=== PATIENT | male | born 1960 | race Caucasian/White ===

== ENCOUNTER 2024-05-28 04:03 | Emergency (ER) | payer MEDICAID, SELFPAY ==
[2024-05-28] VITALS (7 sets, daily range): BP systolic 93–121; BP diastolic 61–72; PULSE 81–145; RESP 16–20; TEMP 36.6–37.3; O2SAT 92–97; BMI 36.9
--- NOTE | 2024-05-28 04:14 | EKG_ITS ---
[facility] Test Date: 2024-05-28 Pat Name: KELTON FLORES Department: Room: - Gender: Male [employer] In [employer] Operator: : 1960 Requested By: Liz Major Order Number: [id number] Reading MD: Liz Major Measurements Intervals Reader Rate: 144 P: MO: QRS: 22 QRSD: 88 T: 28 QT: 288 QTc: 447 Interpretive Statements SUPRAVENTRICULAR TACHYCARDIA NONSPECIFIC ST & T-WAVE ABNORMALITY ABNORMAL RHYTHM ECG No previous ECG available for comparison /[id number]/[email or web address]/[id number].pdf
[2024-05-28] MEDS: SODIUM CHLORIDE 0.9% 1000 ML 1,000 ML 999 ML IV ×2 (04:28→05:28)
--- NOTE | 2024-05-28 04:32 | XR_ITS ---
Examination: AP chest single view Technique one AP portable upright chest single view Exam date and time: May 28, 2024 0502 hrs. Indications: Onset chest pain today. Findings: No significant cardiac enlargement Prominent vascular congestion Bibasilar opacity most consistent with pneumonia Prominent osteopenia Impression: Bibasilar opacity most consistent with pneumonia
--- NOTE | 2024-05-28 05:29 | EDNOTE_ITS ---
ED General RME/HPI General Chief complaint: General Adult/Misc Complain Stated complaint: FAST HEART RATE Time Seen by Provider: 05/28/24 04:08 Source: patient and EMS Arrival date/time: 05/28/24 04:03 Mode of arrival: EMS Limitations: no limitations RME / HPI RME / HPI narrative: DR GARDUNO MAIN ED EVALUATION: 64yom brought in by ambulance from [facility] who presents to ED for stated c/o rapid heart rate in the 146s and possible sepsis. Per EMS, pt's heart rate was 140 on scene. Patient c/o right foot pain, aching in nature, 8/10 in severity. Denies any other medical complaints or associated symptoms. Related Data Allergies Allergy/AdvReac Type Severity Reaction Status Date / Time No Known Allergies Allergy Verified 05/28/24 06:28 Review of Systems Review of Systems Systems Reviewed: All systems reviewed, normal except as documented Past Medical History Social History SMOKING STATUS: Never smoker ED Exam Narrative Physical exam: GENERAL APPEARANCE: alert and oriented x 4, well-developed, well-nourished, no acute distress VITALS: All vitals were reviewed and the pulse ox is % on room air, which is normal according to my interpretation. HEENT: Normocephalic, atraumatic; pupils equal, round, reactive to light; EOMI; mucous membranes pink, moist; oropharynx clear NECK: Supple LUNGS: CTABL; no wheezes, no rales, no rhonchi HEART: Tachycardic; normal S1, S2; no murmurs ABDOMEN: non distended; normal BS; soft, no tenderness, no guarding, no rebound; no masses, no organomegaly, no hernia BACK: no CVA tenderness EXTREMITIES: atraumatic; no edema NEUROLOGIC: awake; alert and oriented x4; cranial nerves II-XII grossly intact; no focal sensory or motor deficits PSYCHIATRIC: appropriate mood and affect SKIN: warm, dry, normal color; no rashes General Limitations: Present no limitations Course Course Course Narrative: CXR is ordered for determining etiology of chest pain. Quality Measures none Orders Category Date Time Status Chili Maker NOW Care 05/28/24 04:32 Completed EKG (ED ONLY) *Do not use* NOW Care 05/28/24 04:14 Completed EKG (ED ONLY) *Do not use* NOW Care 05/28/24 06:23 Completed EKG (ED Only) Stat Exams 05/28/24 04:14 Draft EKG (ED Only) Stat Exams 05/28/24 06:23 Ordered XR chest 1V portable Stat Exams 05/28/24 04:32 Completed B-Type Natriuretic Peptide Stat Lab 05/28/24 04:50 Completed Blood Culture (Lab) Stat Lab 05/28/24 04:50 Completed CBC Stat Lab 05/28/24 04:50 Completed Comprehensive Metabolic Panel Stat Lab 05/28/24 04:50 Completed Lactate (Lactic Acid) Stat Lab 05/28/24 04:50 Completed Lactic Acid, 3 HR Stat Lab 05/28/24 09:38 Completed Lipase Stat Lab 05/28/24 04:50 Completed Magnesium Stat Lab 05/28/24 04:50 Completed Procalcitonin Stat Lab 05/28/24 04:50 Completed Troponin I Stat Lab 05/28/24 04:50 Completed Urinalysis Stat Lab 05/28/24 05:52 Completed Urine Culture Stat Lab 05/28/24 05:52 Completed Sodium Chloride 0.9% 1000 ml [Ns] 1,000 ml Med 05/28/24 04:23 Discontinued IV 999 mls/hr Sodium Chloride 0.9% 1000 ml [Ns] 1,000 ml Med 05/28/24 05:25 Discontinued IV 999 mls/hr Vital Signs Vital signs: Vital Signs Temperature 98.4 F 05/28/24 04:07 Pulse Rate 127 H 05/28/24 04:07 Respiratory Rate 16 05/28/24 04:07 Blood Pressure 98/61 05/28/24 04:07 Pulse Oximetry (%) 96 05/28/24 04:07 Oxygen Delivery Method Room Air 05/28/24 04:07 [facility] Patient data External records reviewed:: EMS form, Jail records and None Clinical information provided by:: patient, EMS and none (SNF staff) Social determinants that could affect healthcare access:: housing (SNF) Patient has the following chronic illnesses:: per longterm How is presenting disease/condition affected by chronic disease/condition?: no chronic disease Evaluation data The following diagnostics were reviewed and interpreted by me:: lab results, radiology exam(s) and EKG tracing(s) Lab and/or radiology exams considered but not ordered:: n/a Interpretation Summary: The cardiac catheterization technician revealed sinus tachycardia as interpreted by me. The cardiac catheterization technician was ordered to monitor for dysrhythmia. Pulse rate is 145 at 0526. I personally reviewed the CXR on this patient which shows Medications Medications considered but not ordered:: n/a Medication administrations:: Medication Administration History Discontinued Medications Sodium Chloride (Ns) 1,000 mls @ 999 mls/hr IV .Q1H1M ONE Stop: 05/28/24 05:23 Last Infusion: 05/28/24 05:29 Dose: Infused Documented By: Admin: 05/28/24 04:28 Dose: 999 mls/hr Documented By: CB Sodium Chloride (Ns) 1,000 mls @ 999 mls/hr IV .Q1H1M ONE Stop: 05/28/24 06:25 Last Infusion: 05/28/24 06:32 Dose: Infused Documented By: Admin: 05/28/24 05:28 Dose: 999 mls/hr Documented By: CB as above Consultations Consultation(s) initiated? (list below): No Diagnosis Differential Diagnosis ED Complaint MDM: sepsis, UTI, arrhythmia Most likely diagnosis given after review of the tests above:: See below Admission Indicated Admission indicated?: not indicated Explain why admission is indicated or not indicated:: Pending workup, results and final dispo Admission Request Was there a request for admission?: No Disposition Plan Disposition Plan: other (specify) (Signed out to Dr. Cho) Medical Decision Making MDM Narrative MDM Narrative: Scribe Attestation: I, Russ Draper, am scribing for and in the presence of Dr. Garduno. Provider Notation: Although this document has been carefully reviewed, there may still be some phonetic and other typographical errors. These errors are purely grammatical due to imperfections in the software program and should not be construed in any way to compromise the substance of the patient's medical care during this visit. Differential Diagnosis Differential Diagnosis: sepsis, UTI, arrhythmia Lab Data Lab results reviewed: Yes I reviewed the patient's lab results. 05/28/24 04:50 05/28/24 04:50 Labs: Lab Results 05/28/24 05/28/24 05/28/24 Range/Units 04:50 05:52 09:38 WBC 14.9 H (3.8-10.6) Thou/mm3 RBC 4.34 L (4.50-5.90) Miln/mm3 Hgb 11.4 L (13.5-16.0) g/dL Hct 38.4 L (41.0-53.0) % MCV 89 (80-100) fL MCH 26.3 (25.0-35.0) pg MCHC 29.7 L (31.0-37.0) g/dl RDW Std Deviation 49.0 H (35.1-43.9) fL Plt Count 306 (140-440) Thou/mm3 Neut % (Auto) 68 (37-80) % Lymph % (Auto) 17 (10-50) % [place] % (Auto) 7 (0-12) % Eos % (Auto) 7 (0-10) % Baso % (Auto) 1 (0-2.5) % Neut # (Auto) 10.2 H (1.8-7.7) Thou/mm3 Lymph # (Auto) 2.5 (1.0-4.8) Thou/mm3 [place] # (Auto) 1.0 H (0.0-0.8) Thou/mm3 Eos # (Auto) 1.1 H (0.0-0.5) Thou/mm3 Baso # (Auto) 0.1 (0.0-0.2) Thou/mm3 Immature Gran # (Auto) 0.07 H (0.00-0.00) Thou/mm3 Absolute Nucleated RBC 0.00 (0.00-0.00) Thou/mm3 Immature Gran % 1 H (0-0) % Nucleated RBC % 0 (0) /100 WBC Sodium 136 (136-145) mMol/L Potassium 4.6 (3.4-5.1) mMol/L Chloride 98 (98-107) mMol/L Carbon Dioxide 28.9 (20.0-31.0) mMol/L Anion Gap 9 (7-16) BUN 19 (9-23) mg/dL Creatinine 1.2 (0.6-1.3) mg/dL Estim Creat Clear Calc 77.2 (>60) mL/min eGFR > 60 (60 - ) See Note BUN/Creatinine Ratio 16 (12-20) Ratio Glucose 206 H (74-106) mg/dL Calculated Osmolality 280 (275-295) Lactic Acid 1.5 0.9 (0.4-2.0) mMol/L Calcium 9.6 (8.3-10.6) mg/dL Corrected Calcium 9.6 (8.5-10.1) mg/dL Magnesium 2.0 (1.6-2.6) mg/dL Total Bilirubin 0.3 (0.3-1.2) mg/dL AST 20 (0-34) U/L ALT 19 (10-49) U/L Alkaline Phosphatase 107 (46-116) U/L Troponin I < 0.020 (0.0-0.045) ng/mL B-Natriuretic Peptide 369 H (0-100) pg/mL Total Protein 7.3 (5.7-8.2) gm/dL Albumin 4.1 (3.4-4.8) gm/dL Globulin 3.2 (2.3-3.5) gm/dL Albumin/Globulin Ratio 1.3 (1.2-2.2) Lipase 29 (12-53) U/L Procalcitonin 0.25 (0.0-0.49) ng/ml Ur Collection Type Clean Catch Urine Color [place] A (Lt Yel-Yel) Urine Clarity Turbid A (Clear/Hazy) Urine pH 6.5 (5.0-7.0) Ur Specific [place] 1.025 (1.001-1.035) Urine Protein 3+ A (Neg - Trace) Urine Glucose (UA) Negative (Negative) Urine Ketones Negative (Negative) Urine Blood 1+ A (Negative) Urine Nitrite Negative (Negative) Urine Bilirubin Negative (Negative) Urine Urobilinogen (Auto) Negative (0.0-1.0) mg/dL Ur Leukocyte Esterase Positive (Negative) Urine RBC 20 H (0-3) /hpf Urine WBC 1161 H (0-5) /hpf Ur Squamous Epith Cells 12 H (0-5) /hpf Urine Bacteria None (None) Urine Yeast (Budding) Present A (None) Discharge Plan Prescriptions/Referrals Referrals: Juventino Gomes MD [Primary Care Provider] - In 1 week Problem List Clinical Impression: SVT (supraventricular tachycardia), Acute UTI Patient/Caregiver Discharge Instructions Print Language: Venezuelan
[2024-05-28 05:39] LABS: Basophils # (Auto) 0.1 Thou/mm3 (0.0-0.2); Basophils % (Auto) 1 % (0-2.5); Eosinophils # (Auto) 1.1 Thou/mm3 (0.0-0.5); Eosinophils % (Auto) 7 % (0-10); Hematocrit 38.4 % (41.0-53.0); Hemoglobin 11.4 g/dL (13.5-16.0); Immature Granulocytes % (Auto) 1 % (0-0); Immature Granulocytes Auto 0.07 Thou/mm3 (0.00-0.00); Lymphocytes # (Auto) 2.5 Thou/mm3 (1.0-4.8); Lymphocytes % (Auto) 17 % (10-50); Mean Corpuscular HGB Conc 29.7 g/dl (31.0-37.0); Mean Corpuscular Hemoglobin 26.3 pg (25.0-35.0); Mean Corpuscular Volume 89 fL (80-100); Monocytes % (Auto) 7 % (0-12); Neutrophils # (Auto) 10.2 Thou/mm3 (1.8-7.7); Neutrophils % (Auto) 68 % (37-80); Nucleated Red Blood Cell % 0 /100 WBC (0); Platelet Count 306 Thou/mm3 (140-440); Red Blood Count 4.34 Miln/mm3 (4.50-5.90); White Blood Count 14.9 Thou/mm3 (3.8-10.6)
[2024-05-28 05:58] LABS: Collection Type, Urine Clean Catch
[2024-05-28 06:09] LABS: B-Type Natriuretic Peptide 369 pg/mL (0-100)
[2024-05-28 06:15] LABS: Bilirubin,Urine Negative (Negative); Blood,Urine 1+ (Negative); Budding Yeast,Urine Present; Clarity,Urine Turbid (Clear/Hazy); Color,Urine Orange (Lt Yel-Yel); Glucose, Urine Negative (Negative); Ketones,Urine Negative (Negative); Leukocyte Esterase,Urine Positive (Negative); Nitrite,Urine Negative (Negative); PH,Urine 6.5 (5.0-7.0); Protein,Urine 3+ (Neg - Trace); RBC,Urine 20 /hpf (0-3); Specific Gravity,Urine 1.025 (1.001-1.035); Squamous Epithelial Cell,Urine 12 /hpf (0-5); Urobilinogen,Urine Negative mg/dL (0.0-1.0); WBC,Urine 1161 /hpf (0-5)
[2024-05-28 06:19] LABS: Alanine Aminotransferase 19 U/L (10-49); Albumin, Serum 4.1 gm/dL (3.4-4.8); Albumin/Globulin Ratio 1.3 (1.2-2.2); Alkaline Phosphatase 107 U/L (46-116); Anion Gap 9 (7-16); Aspartate Amino Transferase 20 U/L (0-34); BUN/Creatinine Ratio 16 Ratio (12-20); Bilirubin,Total 0.3 mg/dL (0.3-1.2); Blood Urea Nitrogen 19 mg/dL (9-23); Calcium 9.6 mg/dL (8.3-10.6); Calcium (Corrected) 9.6 mg/dL (8.5-10.1); Carbon Dioxide 28.9 mMol/L (20.0-31.0); Chloride 98 mMol/L (98-107); Creatinine (Component) 1.2 mg/dL (0.6-1.3); Estimated Creatinine Clearance 77.2 mL/min (>60); Globulin 3.2 gm/dL (2.3-3.5); Glucose 206 mg/dL (74-106); Lipase 29 U/L (12-53); Osmolality,Calculated 280 (275-295); Potassium 4.6 mMol/L (3.4-5.1); Procalcitonin 0.25 ng/ml (0.0-0.49); Sodium 136 mMol/L (136-145); Total Protein 7.3 gm/dL (5.7-8.2); Troponin I < 0.020 ng/mL (0.0-0.045); eGFR > 60 See Note
[2024-05-28 06:37] LABS: Lactate (Lactic Acid) 1.5 mMol/L (0.4-2.0)
--- NOTE | 2024-05-28 06:41 | PD.EDADDENDU ---
Emergency Room Addendum Addendum Narrative: 0600: Care assumed from Dr. Garduno, the previous shift emergency physician. Past medical, surgical, social and family history reviewed. Vitals and home medications reviewed. I will assume the care of the patient at this time, pending reassessment and final disposition. Please refer to the emergency department record for history and examination from initial visit.? EMS notes reviewed by me. Nursing notes reviewed by me. Vital signs reviewed by me. penitentiary records reviewed by me. I reviewed pmhx and medication list from [facility]. [facility] medical records reviewed by me, patient has no previous visits here. 0630: On telemetry patient is having multiple PVC's, rate 80's. Plan to repeat EKG. EKG taken at 06:38. Interpreted by me. Sinus rhythm with multiple PVC's, rate 84, no STEMI. 64 year old male presented to the ED BIBA from [facility] for an elevated heart rate. The initial EKG performed prior to my shift showed supraventricular tachycardia. On my evaluation, the patient converted to sinus rhythm with multiple PVCs. The lab work reveals an elevated WBC count of 14.9. A UA indicates infection, with positive leukocyte esterase and a WBC count of 1,161. The patient is hemodynamically stable, and the SVT has resolved without the need for further intervention. I will discharge him with a prescription for Cephalexin to address the UTI.
--- NOTE | 2024-05-28 08:48 | PC.CC ---
Addendum entered by Jeffrey Whitney II 05/28/24 09:41: 0931-Call from Sejal with [facility]. Transport ETA set for 1000. Bedside RN aware. Original Note: [employer] CC engaged by bedside RN to arrange transport for pt back to [facility]. 5500-[employer] CC spoke with Sejal Zuñiga with [facility] admissions. [facility] to provide transport for pt. Per Sejal she will call back with transport ETA once she speaks with transport.
[2024-05-28 09:11] LABS: Reflex Lactate? Y
[2024-05-28 09:45] LABS: Lactic Acid, 3 HR 0.9 mMol/L (0.4-2.0)
== END 2024-05-28 10:40 | disposition home or self-care (01) ==
PROVIDERS: Emergency Medicine; Emergency Provider Emergency Medicine; PCP Hospitalist
DX: I47.10 Supraventricular tachycardia, unspecified (principal); N39.0 Urinary tract infection, site not specified
CPT/HCPCS: 36415; 71045; 80053; 81001; 83605; 83690; 83735; 83880; 84145; 84484; 85025; 87040; 87077; 87086; 87186; 93005; 96360; 96361; 99284; J7030